=== PATIENT | female | born 1975 | race American Indian/Alaskan Native ===

== ENCOUNTER 2016-11-01 02:39 | Emergency (ER) | payer MEDICAID ==
[2016-11-01] MEDS ORDERED: BSS 1 DROPS, TETRACAINE 0.5% 1 DROPS, FUL-GLO 1 MG OD ONE (07:32)
[2016-11-01] MEDS ORDERED: TETRACAINE 0.5% ONE (07:33)
[2016-11-01] MEDS ORDERED: FUL-GLO OP ONE (07:33)
[2016-11-01] MEDS ORDERED: BSS ONE (07:33)
[2016-11-01 07:42] VITALS: BP 181/89
--- NOTE | 2016-11-01 07:53 | Emergency Department Report ---
ED Eye Problem HPI - General Chief complaint: Eye Problems Stated complaint: EYE INJURY Source: patient Mode of arrival: Ambulatory Limitations: No Limitations - History of Present Illness Initial comments: 41-year-old -Gabonese female comes in complaining that she feels like there is something in her right eye. No foreign body noted in triage sheet patient reports her eyes is red and swollen. She does wear eyelash extensions. She has a history of hypertension she just took her medications this morning blood pressure was repeated. She takes lisinopril 10 mg with hydrochlorothiazide 12.5 mg. chief complaint: eye redness -: Sudden Onset Description: sudden Location: right eye If Injury: none Eye Symptoms: redness, discharge, photophobia Severity scale (0 -10): 5 If Pain, Quality: aching Consistency: constant Associated Symptoms: none Treatments Prior to Arrival: irrigated eye, OTC eye drops - Related Data Previous Rx's Medication Instructions Recorded Last Taken Type Ofloxacin 0.3% [Floxin Otic] 2 drop OD QID #5 ml 11/01/16 Unknown Rx Allergies Allergy/AdvReac Type Severity Reaction Status Date / Time No Known Allergies Allergy Unverified 11/01/16 02:58 ED Review of Systems ROS: Stated complaint: EYE INJURY Other details as noted in HPI ED Past Medical Hx - Past Medical History Previous Medical History?: Yes Hx Hypertension: Yes - Surgical History Past Surgical History?: Yes Additional Surgical History: gallstones removed - Medications Home Medications: Home Medications Medication Instructions Recorded Confirmed Last Taken Type Ofloxacin 0.3% [Floxin Otic] 2 drop OD QID #5 ml 11/01/16 Unknown Rx ED Physical Exam - General Limitations: No Limitations General appearance: alert, in no apparent distress - Head Head exam: Present: atraumatic, normocephalic - Eye Eye exam: Present: EOMI, scleral icterus, other (upper eyelid swelling) Pupils: Present: normal accommodation, unequal - Expanded Eye Exam Expanded Eyelids: Normal Inspection: Left, Swelling: Right Pupils: Regular, Round: Bilateral, Reactive: Bilateral Sclera/Conjunctival: Normal Inspection: Left, Injection: Right (fluorescein exam shows that there is a corneal abrasion of the right cornea approximately 12 :00 11:00 and at 9:00. Not able to appreciate any foreign body eye was flushed with normal saline.) Anterior chamber: Normal Inspection: Bilateral Posterior chamber: Deferred: Bilateral ED Course Vital Signs 11/01/16 11/01/16 02:59 07:41 Temperature 98.4 F Pulse Rate 93 H 81 Respiratory 18 20 Rate Blood Pressure 181/89 [Right] O2 Sat by Pulse 99 99 Oximetry - Reevaluation(s) Reevaluation #1: 11/01/16 07:56 This reports that her eye feel much better since the tetracaine and flushing of the eye. ED Medical Decision Making - EKG Data Rate: normal - Medical Decision Making Patient reevaluated with his provider fast track fluorescein exam shows that there cornea abrasion noted in the right eye. Discussed patient with treatment for that is antibiotic eyedrops 3-4 times a day for approximately 10 days and a follow-up to ophthalmology patient verbalized understanding Critical care attestation.: If time is entered above; I have spent that time in minutes in the direct care of this critically ill patient, excluding procedure time. ED Disposition Clinical Impression: Corneal abrasion, right Qualifiers: Encounter type: initial encounter Qualified Code(s): S05.01XA - Injury of conjunctiva and corneal abrasion without foreign body, right eye, initial encounter Disposition: DISCHARGED TO HOME OR SELFCARE Is pt being admited?: No Does the pt Need Aspirin: No Condition: Stable Instructions: Corneal Abrasion (ED) Additional Instructions: You can take [id number] pain medication for pain. Take your antibiotic drops as prescribed. For at least 10 days. It's very important for you to follow-up with the all purpose clerk for further evaluation. Prescriptions: Ofloxacin 0.3% [Floxin Otic] 2 drop OD QID #5 ml Referrals: DR LIN [Other] - 3-5 Days BARRINGTON LUTHER MD [Staff Physician] - 3-5 Days [facility] [Provider Group] - 3-5 Days [facility], [facility] [Provider Group] - 3-5 Days Forms: Accompanied Note, Work/School Release Form(ED)
== END 2016-11-01 08:10 | disposition home or self-care (01) ==
LOC: ED 02:39
DX: S05.01XA Injury of conjunctiva and corneal abrasion without foreign body, right eye, initial encounter (principal); I10 Essential (primary) hypertension; X58.XXXA Exposure to other specified factors, initial encounter; Y93.89 Activity, other specified; Y99.9 Unspecified external cause status; Y92.89 Other specified places as the place of occurrence of the external cause
CPT/HCPCS: 99283

== ENCOUNTER 2017-03-16 07:31 | Day surgery (SDC) | payer MEDICAID ==
[2017-03-16] MEDS ORDERED: VERSED IV NR (08:00)
--- NOTE | 2017-03-16 08:56 | Anesthesia Day of Surgery ---
Anesthesia Day of Surgery - Day of Surgery Patient Examined: Yes Patient H&P Reviewed: Yes Patient is NPO: Yes
--- NOTE | 2017-03-16 08:57 | Anesthesia Consultation ---
Anesthesia Consult and Med Hx Date of service: 03/16/17 - Airway Anesthetic Teeth Evaluation: Good ROM Head & Neck: Adequate Mental/Hyoid Distance: Adequate Mallampati Class: Class II Intubation Access Assessment: Probably Good - Pulmonary Exam CTA: Yes - Cardiac Exam Cardiac Exam: RRR - Pre-Operative Health Status ASA Pre-Surgery Classification: ASA2 Proposed Anesthetic Plan: General - Pulmonary Hx Smoking: No Hx Asthma: No Hx Respiratory Symptoms: No Hx Sleep Apnea: No - Cardiovascular System Hx Hypertension: Yes - Central Nervous System Hx Psychiatric Problems: No - Endocrine Hx Renal Disease: No Hx Insulin Dependent Diabetes: No Hx Thyroid Disease: No - Other Systems Hx Alcohol Use: Yes (occas) Hx Cancer: No Hx Obesity: No
[2017-03-16] MEDS ORDERED: NACL BACTERIOSTATIC INFILTRATI ONE (08:58)
--- NOTE | 2017-03-16 09:01 | Short Stay Summary ---
Short Stay Documentation Date of service: 03/16/17 Narrative H&P: Pt is a 42yo BF LMP 02/15/17 presents for surgical evaluation and treatment of Menorrhagia with Adenomyosis. Pelvic u/s showed the uterus 9.0 x 4.8 x 4.3cm with diffuse myometrium suggestive of Adenomyosis. No fibroids seen. Endoometrial biopsy showed focally proliferative endometrium. She is now scheduled for a Novasure endometrial ablation. - History Principal diagnosis: Menorrhagia H&P: obtained from office Past Medical History: hypertension, hyperlipidemia Past Surgical History: cholecystectomy, Other (BTL) Social history: no significant social history, single - Allergies and Medications Current Medications: Allergies No Known Allergies Allergy (Unverified 03/14/17 10:18) Home Medications Medication Instructions Recorded Confirmed Last Taken Type Lisinopril [Zestril] 20 mg PO QDAY 01/10/17 03/14/17 Unknown History Simvastatin [Zocor TAB] 20 mg PO QHS 01/10/17 03/14/17 Unknown History Active Medications Famotidine (Pepcid) 20 mg PO PREOP NR Stop: 03/16/17 15:00 Hydromorphone HCl (Dilaudid) 0.5 mg IV Q10MIN PRN PRN Reason: Pain , Severe (7-10) Stop: 03/19/17 08:58 Sodium Chloride (Nacl 0.9% 1000 Ml) 1,000 mls @ 75 mls/hr IV DIRECT LATA Stop: 03/16/17 15:00 Ketorolac Tromethamine (Toradol) 30 mg IV ONCE PRN PRN Reason: Pain, Moderate (4-6) Stop: 03/16/17 08:58 Midazolam HCl (Versed) 2 mg IV PREOP NR Stop: 03/16/17 23:59 Ondansetron HCl (Zofran) 4 mg IV ONCE PRN PRN Reason: Nausea And Vomiting Stop: 03/16/17 08:58 Oxycodone/Acetaminophen (Percocet 5/325) 1 tab PO ONCE PRN PRN Reason: Pain, Moderate (4-6) Stop: 03/16/17 08:58 - Physical exam General appearance: no acute distress Integumentary: no rash HEENT: Atraumatic Lungs: Clear to auscultation Breasts: deferred Heart: Regular rate Gastrointestinal: normal Female Genitourinary: deferred Rectal Exam: deferred Extremities: No edema Neurological: Normal gait, Normal speech - Brief post op/procedure progress note Date of procedure: 03/16/17 Pre-op diagnosis: 1. Menorrhagia 2. Suspected Adenomyosis Post-op diagnosis: same Procedure: 1. Hysteroscopy 2. Novasure endometrial ablation Anesthesia: MAC Findings: An 8-10 weeks size uterus with moderate amounts of endometrial tissue. No endometrial masses. Surgeon: LEXI LEONARDO Estimated blood loss: minimal Pathology: none Condition: stable - Hospital course Hospital course: Unremarkable. - Disposition Condition at discharge: Good Disposition: DC-01 TO HOME OR SELFCARE - Discharge Diagnoses (1) Menorrhagia with regular cycle Status: Resolved (2) Adenomyosis Status: Resolved Short Stay Discharge Plan Activity: no restrictions Diet: regular Follow up with: YUNG POLLACK MD [Primary Care Provider] - 7 Days LEXI LEONARDO MD [Staff Physician] - 14 Days Prescriptions: HYDROcodone/APAP 5-325 [Ortley 5/325] 1 each PO Q6HR PRN #10 tablet PRN Reason: Pain Ibuprofen [Motrin] 800 mg PO Q8HR PRN #30 tablet PRN Reason: Moder Pain Unrelieved By Ortley
[2017-03-16 09:19] LABS: Hematocrit 38.9 % (30.3-42.9); Hemoglobin 13.7 gm/dl (10.1-14.3); Mean Corpuscular HGB Conc 35 % (30-34); Mean Corpuscular Hemoglobin 29 pg (28-32); Mean Corpuscular Volume 82 fl (79-97); Platelet Count 335 K/mm3 (140-440); Red Blood Count 4.73 M/mm3 (3.65-5.03); Red Cell Distribution Width 13.5 % (13.2-15.2); White Blood Count 9.2 K/mm3 (4.5-11.0)
[2017-03-16] MEDS ORDERED: NACL 0.9% 1000 ML 1,000 ML IV SCH (09:30)
[2017-03-16] MEDS ORDERED: PEPCID PO NR (09:30)
[2017-03-16] MEDS ORDERED: NACL 0.9% IR ONE (09:33)
[2017-03-16] MEDS ORDERED: DIPRIVAN 10 MG/ML IV ONE (09:48)
[2017-03-16] MEDS ORDERED: XYLOCAINE MPF 2% ONE (09:48)
[2017-03-16] MEDS ORDERED: ZOFRAN IV PRN (10:00)
[2017-03-16] MEDS ORDERED: ANCEF/STERILE WATER 2 GM/20 ML 2 GM/20 ML SYRINGE IV NR (10:00)
[2017-03-16] MEDS ORDERED: TORADOL IV PRN (10:00)
[2017-03-16] MEDS ORDERED: PERCOCET 5/325 PO PRN (10:00)
[2017-03-16] MEDS ORDERED: SUBLIMAZE ONE (10:02)
[2017-03-16] MEDS ORDERED: DECADRON ONE (10:02)
[2017-03-16] MEDS ORDERED: ZOFRAN ONE (10:02)
[2017-03-16] MEDS ORDERED: ROBINUL ONE (10:12)
[2017-03-16] MEDS ORDERED: NORMODYNE IV ONE (10:31)
[2017-03-16] MEDS: DILAUDID IV PRN ×2 (10:40→10:50)
[2017-03-16] MEDS ORDERED: APRESOLINE ONE (10:42)
--- NOTE | 2017-03-16 10:42 | Operative Report ---
Operative Report Operative Report: Date of procedure: 03/16/2017 Pre-operative diagnosis: 1. Menorrhagia 2. Adenomyosis Post-operative diagnosis: Same Procedure name(s): 1. Hysteroscopy 2. NovaSure endometrial ablation Surgeon: El Ceballos MD President [employer]: None Anesthesia: General Mac by Dr. Schneider EBL: 5 mL's Findings: An 8-10 week size uterus with moderate amounts of endometrial tissue. No endometrial masses seen. Uterine cavity length 5 cm, cavity width 3.7 cm and 102 Olivo of Power was used for 69 seconds to perform the ablation. Procedure: After the patient was correctly identified she was prepped and draped in usual sterile fashion and placed in dorsolithotomy position. The bladder was first emptied using a straight catheter, and the speculum was placed in vaginal vault and the anterior lip of the cervix was grasped using single-tooth tenaculum. The endometrial cavity length was calculated to 5 cm, the cervical os dilated, and the hysteroscope was introduced into the endometrial cavity. Visualization of the endometrial cavity found margin amounts of endometrial tissue and no endometrial masses were seen. The hysteroscope was then removed, and the NovaSure device was placed in the uterine cavity, and the cavity width was 3.7 cm. After the usual maneuvers, and cavity testing, the ablation was performed using 102 Olivo of Power for 69 seconds. The NovaSure device was removed, and hysteroscopy again performed showing excellent ablation of the entire endometrial cavity. At this point the procedure was considered complete. All instruments removed from the vagina. The patient tolerated the procedure well and was transported to recovery in stable condition.
--- NOTE | 2017-03-16 11:06 | Post Anesthesia Evaluation ---
- Post Anesthesia Evaluation Patient Participated: Yes Airway Patent: Yes Stable Respiratory Function: Yes Nausea/Vomiting: No Temp > 96.8F: Yes Pain Manageable: Yes Adequeate Hydration: Yes Anesthesia Complications: No Block Receding Appropriately: Not Applicable Patient on Ventilator: No
[2017-03-16 11:52] VITALS: BP 167/91
== END 2017-03-16 12:44 | disposition home or self-care (01) ==
LOC: OR 07:31
PROVIDERS: ATTEND Obstetrics & Gynecology
DX: N80.0 Endometriosis of uterus (principal); I10 Essential (primary) hypertension; E78.5 Hyperlipidemia, unspecified; Z72.89 Other problems related to lifestyle; Z90.49 Acquired absence of other specified parts of digestive tract; Z98.51 Tubal ligation status; Z79.899 Other long term (current) drug therapy
CPT/HCPCS: 36415; 58563; 81025; 85027; A4217; J0360; J0690; J1100; J1170; J1885; J2250; J2405; J2704; J3010; J7030

== ENCOUNTER 2019-07-01 16:51 | Emergency (ER) | payer SELFPAY ==
[2019-07-01] MEDS ORDERED: ASPIRIN 325 MG TAB PO ONE (17:36)
--- NOTE | 2019-07-01 17:37 | Event Note ---
ED Screening Note Date of service: 07/01/19 Time: 17:34 ED Screening Note: This is a 44 y.o. F. that presents to the ER with dizziness, chest pain, headache, nausea, and vomiting. PMH of HLD, HTN, vitamin D deficiency. Taking medications daily with no improvement of blood pressure. This initial assessment/diagnostic orders/clinical plan/treatment(s) is/are subject to change based on patients health status, clinical progression and re- assessment by fellow clinical providers in the ED. Further treatment and workup at subsequent clinical providers discretion. Patient/guardian urged not to elope from the ED as their condition may be serious if not clinically assessed and managed. Initial orders include: Labs, CXR, EKG, & CT of head
--- NOTE | 2019-07-01 18:23 | XRay Report ---
CHEST 2 VIEWS INDICATION / CLINICAL INFORMATION: Chest Pain. COMPARISON: None available. FINDINGS: SUPPORT DEVICES: None. HEART / MEDIASTINUM: No significant abnormality. LUNGS / PLEURA: No significant pulmonary or pleural abnormality. No pneumothorax. ADDITIONAL FINDINGS: No significant additional findings. IMPRESSION: 1. No acute findings. Signer Name: Rocky Powers MD Signed: 07/01/2019 6:19 PM Workstation Name: [id number]
[2019-07-01 18:27] LABS: Basophils # (Auto) 0.1 K/mm3 (0.0-0.1); Basophils % (Auto) 0.6 % (0.0-1.8); Eosinophils # (Auto) 0.1 K/mm3 (0.0-0.4); Eosinophils % (Auto) 0.4 % (0.0-4.3); Hematocrit 43.3 % (30.3-42.9); Hemoglobin 15.3 gm/dl (10.1-14.3); Lymphocytes # (Auto) 2.3 K/mm3 (1.2-5.4); Lymphocytes % (Auto) 16.7 % (13.4-35.0); Mean Corpuscular HGB Conc 35 % (30-34); Mean Corpuscular Volume 81 fl (79-97); Monocytes # (Auto) 0.6 K/mm3 (0.0-0.8); Platelet Count 388 K/mm3 (140-440); Red Blood Count 5.36 M/mm3 (3.65-5.03); Red Cell Distribution Width 13.9 % (13.2-15.2)
[2019-07-01 18:33] LABS: BUN/Creatinine Ratio 11; Blood Urea Nitrogen 12 mg/dL (7-17); Calcium 9.5 mg/dL (8.4-10.2); Hemolysis Index 10
[2019-07-01] MEDS ORDERED: METOCLOPRAMIDE 10 MG/2 ML INJ IV ONE (18:52)
[2019-07-01] MEDS ORDERED: diphenhydrAMINE 50 MG/ML VIAL IV ONE (18:52)
[2019-07-01] MEDS ORDERED: SODIUM CHLORIDE 0.9% 1000 ML 1,000 ML IV ONE (18:52)
[2019-07-01] MEDS ORDERED: MORPHINE 4 MG/1 ML INJ IV ONE (18:52)
--- NOTE | 2019-07-01 19:09 | Cat Scan Report ---
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 TECHNIQUE: Routine CT head without contrast. All CT scans at this location are performed using CT dos e reduction for ALARA by means of automated exposure control. COMPARISON: 06/04/2012 FINDINGS: BRAIN / INTRACRANIAL CONTENTS: No acute hemorrhage, mass effect, midline shift, hydrocephalus, or acu te, large territorial infarct. No chronic infarct or atrophy appreciated. No significant white matter abnormality. CRANIOCERVICAL JUNCTION: No significant abnormality. ORBITS: No significant abnormality of visualized orbits. SINUSES / MASTOIDS: No significant abnormality the visualized paranasal sinuses or mastoid air cells. ADDITIONAL FINDINGS: None. IMPRESSION: 1. No focal mass, hemorrhage, hydrocephalus, or acute, large territorial infarct. Signer Name: Kyrie Espitia MD, III Signed: 07/01/2019 7:04 PM Workstation Name: [id number]
[2019-07-01] MEDS ORDERED: POTASSIUM CHLORIDE ER 20 MEQ TAB PO ONE (19:29)
[2019-07-01 19:40] LABS: Alanine Aminotransferase 13 units/L (7-56); Albumin 4.6 g/dL (3.9-5)
[2019-07-01 19:45] LABS: Bilirubin,Direct < 0.2 mg/dL (0-0.2)
--- NOTE | 2019-07-01 20:02 | Emergency Department Report ---
ED Headache HPI - General Chief Complaint: Headache Stated Complaint: CHEST PAIN/NAUSEA Time Seen by Provider: 07/01/19 17:34 - History of Present Illness Initial Comments: This is a 44-year-old female with history of only hypertension (as per patient stated) nontoxic, well nourished in appearance, no acute signs of distress pre sents to the ED with c/o of headache, dizziness, and nausea with vomiting. Patient also stated has chest pains without any shortness of breathen that has resolved. Currently, patient denies any chest pain or shortness of breathe. Patient denies any upper respiratory symptoms. Patient describes vomiting as food content. Patient denies any abdominal pain. Patient describes headache as diffuse with level of 8 out of 10. Patient denies thunderclap headache. Patient denies any radiation of pain. Patient denies any head trauma. Patient denies any visual changes. Patient denies worse headache. Patient stated that darkness makes headache better and bright lights make the headache worse. Patient denies any numbness, tingling, fever, chills, nausea, vomiting, chest pain, shortness of breath, stiff neck. Patient denies facial drooping or one sided weakness. Patient denies any radiation of pain. Patient denies any allergies. Past medical history includes HTN which she has not taken her blood pressure medications for the past month due to the side effects of HCTZ and lisinopril. Quality: moderate, achy Head Injury Location: other (diffuse) Recent Head Trauma: no recent headache/trauma Associated Symptoms: nausea/vomiting, other (dizziness). denies: confusion, fatigue, facial pain, fever/chills, flushing, loss of consciousness, nasal congestion, nasal drainage, numbness in legs/feet, rash, seizures, sinus infection, stiff neck, vision changes, weakness Allergies/Adverse Reactions: Allergies No Known Allergies Allergy (Verified 03/16/17 09:25) Home Medications: Ambulatory Orders Lisinopril [Zestril] 20 mg PO QDAY 01/10/17 Simvastatin (Nf) [Zocor TAB] 20 mg PO QHS 01/10/17 HYDROcodone/APAP 5-325 [Olney 5/325] 1 each PO Q6HR PRN #10 tablet 03/16/17 Ibuprofen [Motrin] 800 mg PO Q8HR PRN #30 tablet 03/16/17 amLODIPine 10 mg PO DAILY #30 tab 07/01/19 ED Review of Systems ROS: Stated complaint: CHEST PAIN/NAUSEA Other details as noted in HPI Constitutional: denies: chills, fever Eyes: denies: eye pain, eye discharge, vision change ENT: denies: ear pain, throat pain Respiratory: denies: cough, shortness of breath, wheezing Cardiovascular: denies: chest pain, palpitations Endocrine: no symptoms reported Gastrointestinal: nausea, vomiting. denies: abdominal pain, diarrhea, constipation, hematemesis, melena, hematochezia Genitourinary: denies: urgency, dysuria, discharge Musculoskeletal: denies: back pain, joint swelling, arthralgia Skin: denies: rash, lesions Neurological: headache, other (dizziness). denies: weakness, paresthesias Psychiatric: denies: anxiety, depression Hematological/Lymphatic: denies: easy bleeding, easy bruising ED Past Medical Hx - Past Medical History Previous Medical History?: Yes Hx Hypertension: Yes Hx Renal Disease: No Hx Headaches / Migraines: Yes (migraines) Hx Asthma: No Hx HIV: No - Surgical History Past Surgical History?: Yes Hx Cholecystectomy: Yes Additional Surgical History: gallstones removed - Social History Smoking Status: Never Smoker Substance Use Type: Alcohol - Medications Home Medications: Home Medications Medication Instructions Recorded Confirmed Last Taken Type Lisinopril [Zestril] 20 mg PO QDAY 01/10/17 03/16/17 03/16/17 06:50 History Simvastatin (Nf) [Zocor TAB] 20 mg PO QHS 01/10/17 03/16/17 03/15/17 History HYDROcodone/APAP 5-325 [Olney 1 each PO Q6HR PRN #10 tablet 03/16/17 Unknown Rx 5/325] Ibuprofen [Motrin] 800 mg PO Q8HR PRN #30 tablet 03/16/17 Unknown Rx amLODIPine 10 mg PO DAILY #30 tab 07/01/19 Unknown Rx ED Physical Exam - General Limitations: No Limitations General appearance: alert, in no apparent distress - Head Head exam: Present: atraumatic, normocephalic - Eye Eye exam: Present: normal appearance, PERRL, EOMI - Neck Neck exam: Present: normal inspection, full ROM. Absent: tenderness, meningismus, lymphadenopathy - Respiratory Respiratory exam: Present: normal lung sounds bilaterally. Absent: respiratory distress, wheezes, rales, rhonchi, stridor, chest wall tenderness, accessory muscle use, decreased breath sounds, prolonged expiratory - Cardiovascular Cardiovascular Exam: Present: regular rate, normal rhythm, normal heart sounds. Absent: systolic murmur, diastolic murmur, rubs, gallop - GI/Abdominal GI/Abdominal exam: Present: soft, normal bowel sounds. Absent: distended, tenderness, guarding, rebound, rigid, diminished bowel sounds - Extremities Exam Extremities exam: Present: normal inspection, full ROM, normal capillary refill. Absent: tenderness, joint swelling - Back Exam Back exam: Present: normal inspection, full ROM. Absent: tenderness, CVA tenderness (R), CVA tenderness (L), muscle spasm, paraspinal tenderness, vertebral tenderness, rash noted - Neurological Exam Neurological exam: Present: alert, oriented X3, normal gait - Expanded Neurological Exam Expanded Patient oriented to: Present: person, place, time Cranial nerves: EOM's Intact: Normal, Facial Sensation: Normal Motor strength exam: RUE: 5, LUE: 5, RLE: 5, LLE: 5 Best Eye Response (Jaycee): (4) open spontaneously Best Motor Response (Oakley): (6) obeys commands Best Verbal Response (Oakley): (5) oriented Jaycee Total: 15 - Psychiatric Psychiatric exam: Present: normal affect, normal mood - Skin Skin exam: Present: warm, dry, intact, normal color. Absent: rash ED Course Vital Signs 07/01/19 07/01/19 07/01/19 18:21 19:00 19:04 Temperature 98.1 F Pulse Rate 91 H 100 H 105 H Respiratory 20 13 16 Rate Blood Pressure 262/123 231/114 231/114 O2 Sat by Pulse 97 96 Oximetry 07/01/19 07/01/19 07/01/19 19:16 19:30 19:46 Temperature Pulse Rate 92 H 89 94 H Respiratory 15 16 16 Rate Blood Pressure 231/114 221/102 221/102 O2 Sat by Pulse 92 95 94 Oximetry 07/01/19 07/01/19 07/01/19 20:00 20:16 20:30 Temperature Pulse Rate 91 H 85 92 H Respiratory 16 15 15 Rate Blood Pressure 224/101 224/101 236/117 O2 Sat by Pulse 94 98 94 Oximetry 07/01/19 07/01/19 07/01/19 20:38 20:46 21:00 Temperature Pulse Rate 96 H 93 H 91 H Respiratory 16 18 Rate Blood Pressure 236/117 236/117 212/102 O2 Sat by Pulse 98 97 Oximetry 07/01/19 07/01/19 07/01/19 21:16 21:30 21:46 Temperature Pulse Rate 110 H 92 H 94 H Respiratory 16 12 13 Rate Blood Pressure 212/102 205/113 205/113 O2 Sat by Pulse 96 95 97 Oximetry 07/01/19 07/01/19 07/01/19 22:00 22:01 22:16 Temperature Pulse Rate 87 90 96 H Respiratory 15 14 Rate Blood Pressure 205/113 205/113 160/79 O2 Sat by Pulse 96 96 Oximetry 07/01/19 22:30 Temperature Pulse Rate 83 Respiratory 14 Rate Blood Pressure 160/79 O2 Sat by Pulse 96 Oximetry - Reevaluation(s) Reevaluation #1: 07/01/19 20:07 Patient is speaking in full sentences with no signs of distress noted. Reevaluation #2: 07/01/19 22:21 Patient is resting comfortably and stated the symptoms of headache and dizziness with nausea has resolved. ED Medical Decision Making - Lab Data Result diagrams: 07/01/19 17:42 07/01/19 17:42 - Medical Decision Making This is a 44-year-old female that presents with headache and HTN. Patient is stable and was examined by me. Patient is neurologically stable. There is no stiff neck or neck pain. Patient was consulted with Dr. Holland and agrees to the ED plan of care and discharge instructions. Vital signs are stable. Patient is afebrile. Patient received labetalol and Catapres in the ER and blood pressure has decreased prior to discharge. CT of head has been obtained and dictated by radiologist unremarkable. EKG normal sinus rhythm with no significant changes in ST. Chest xray dictated by the radiologist. PAtient is notified of the Xray report with no questions noted. Labs within normal limits. ELÍAS and HEART score 0 pints. Patient received Benadryl, Reglan, Morphine, and 1 L of normal saline which the patient stated that headache has subsided and resolved. Patient was instructed not to operate any machinery after discharged due to drowsiness of Benadryl and Morphine. Patient stated that a family member will drive patient home. Patient is discharged with [facility]. Patient was educated on blood pressure management and lifestyle modification. Patient was referred to Follow-up with a primary care and jewelry coater doctor in 3-5 days or if symptoms worsen and continue return to emergency room as soon as possible. At time of discharge, the patient does not seem toxic or ill in appearance. No acute signs of distress noted. Patient agrees to discharge treatment plan of care. No further questions noted by the patient. Critical care attestation.: If time is entered above; I have spent that time in minutes in the direct care of this critically ill patient, excluding procedure time. ED Disposition Clinical Impression: Dizziness HTN (hypertension) Qualifiers: Hypertension type: unspecified Qualified Code(s): I10 - Essential (primary) hypertension Headache Qualifiers: Headache type: unspecified Headache chronicity pattern: acute headache Intractability: not intractable Qualified Code(s): R51 - Headache Nausea & vomiting Qualifiers: Vomiting type: unspecified Vomiting Intractability: non-intractable Qualified Code(s): R11.2 - Nausea with vomiting, unspecified Disposition: DC-01 TO HOME OR SELFCARE Is pt being admited?: No Does the pt Need Aspirin: No Condition: Stable Instructions: Hypertension (ED), Low Sodium Diet (ED) Additional Instructions: Follow-up with a primary care and jewelry coater doctor in 3-5 days or if symptoms worsen and continue return to emergency room as soon as possible. Prescriptions: amLODIPine 10 mg PO DAILY #30 tab Referrals: PRIMARY CAREMD [Primary Care Provider] - 3-5 Days GERSON MANRIQUE MD [Staff Physician] - [facility] - [facility] Days [facility] [Outside] - 3-5 Days [facility] [Outside] - 3-5 Days Forms: Work/School Release Form(ED)
[2019-07-01] MEDS ORDERED: cloNIDine 0.2 MG TAB PO ONE (20:11)
[2019-07-01 23:15] LABS: Bilirubin,Urine NEG (Negative); Blood,Urine SM (Negative); Color,Urine Straw (Yellow); Mucus,Urine FEW /HPF; Urobilinogen,Urine < 2.0 mg/dL (<2.0)
[2019-07-01 23:54] VITALS: BP 163/73
== END 2019-07-01 23:54 | disposition home or self-care (01) ==
LOC: ED 16:51
DX: I10 Essential (primary) hypertension (principal); R51 Headache; R42 Dizziness and giddiness; R11.2 Nausea with vomiting, unspecified; G43.909 Migraine, unspecified, not intractable, without status migrainosus; Z90.49 Acquired absence of other specified parts of digestive tract; Z79.1 Long term (current) use of non-steroidal anti-inflammatories (NSAID); Z79.899 Other long term (current) drug therapy
CPT/HCPCS: 36415; 70450; 71046; 80048; 80076; 81001; 83690; 84484; 85025; 93005; 93010; 96361; 96374; 96375; 96376; 99285; J1200; J2270; J2765; J7030